=== PATIENT | female | born 2000 | race African-American/Black ===

== ENCOUNTER 2019-11-13 17:44 | Emergency (ER) | payer MEDICARE, MEDICAID ==
[~2019-11-13] VITALS: Ht 157.5 cm; Wt 51.3 kg
[2019-11-13 18:04] VITALS: BP 150/100
--- NOTE | 2019-11-13 18:25 | NUR ---
THIS NURSE CALLED THE "EMERGENCY CONSENT PHONE NUMBER" FOR THE [facility] PUBLIC ADMINISTRATION OFFICE. THEY STATED THAT THEY "WILL DISPATCH THE DEPUTY PROJECT FINANCIAL ANALYST FOR [facility]".
--- NOTE | 2019-11-13 18:30 | NUR ---
SPOKE TO KAILEE DIAL DEPUTY SENIOR QUANTITY SURVEYOR FOR [facility]. VERBAL CONSENT TO TREAT AND TRANSFER IF NEEDED VERIFIED BY [place] VIA TELEPHONE.
--- NOTE | 2019-11-13 18:35 | NUR ---
THIS NURSE TALKED WITH KAILEE DIAL, DEPUTY COMMUNICATIONS SCIENTIST FOR [facility], AND RECEIVED CONSENT TO BE TREATED AT THIS FACILITY IN THE ED, WELL CONSENT TO TRANSFER TO ANOTHER FACILITY IF NEEDED.
[2019-11-13 19:20] LABS: ABSOLUTE BASOPHILS 0.1 thou/uL (0.0-0.2); ABSOLUTE LYMPHOCYTES 1.7 thou/uL (0.8-5.3); ABSOLUTE MONOCYTES 0.3 thou/uL (0.0-1.2); ABSOLUTE NEUTROPHILS 2.8 thou/uL (1.6-8.1); BASOPHILS 1.4 %; EOSINOPHILS 0.7 %; HEMATOCRIT 36.4 % (37.0-47.0); HEMOGLOBIN 12.4 gm/dL (12.0-15.0); LYMPHOCYTES 34.2 %; MCH 28.9 pg (26.0-34.0); MCHC 34.1 g/dL (28.0-37.0); MCV 84.5 fL (80.0-100.0); MONOCYTES 6.3 %; MPV 7.8 fl. (7.2-11.1); NUCLEATED RBCS 0 /100WBC; PLATELET COUNT* 288 thou/uL (150-400); POLYS 57.4 %; RBC 4.31 mil/uL (4.20-5.00); RDW-CV 13.3 % (10.5-14.5); WBC 4.9 thou/uL (4.0-11.0)
[2019-11-13 19:27] LABS: CREATININE 0.6 mg/dL (0.6-1.3); POTASSIUM 3.1 mmol/L (3.5-5.1)
[2019-11-13 19:32] LABS: ALBUMIN 3.6 g/dL (3.4-5.0); TOTAL BILIRUBIN 0.5 mg/dL (<0.1-1.0); TOTAL PROTEIN 6.8 g/dL (6.4-8.2)
[2019-11-13 19:42] LABS: ACETAMINOPHEN < 2 ug/mL (10-30); ALCOHOL < 10 mg/dL (<10); SALICYLATE < 2.8 mg/dL (2.8-20.0)
[2019-11-13 22:45] LABS: URINE BILIRUBIN NEGATIVE (Negative); URINE BLOOD 2+ (Negative); URINE CLARITY CLEAR; URINE COLOR YELLOW; URINE GLUCOSE-RANDOM NEGATIVE (Negative); URINE KETONES 2+ (Negative); URINE LEUKOCYTES-REFLEX NEGATIVE (Negative); URINE NITRITE-REFLEX NEGATIVE (Negative); URINE PROTEIN NEGATIVE (Negative); URINE UROBILINOGEN 0.2 E.U./dl (0.2-1.0)
[2019-11-13 22:53] LABS: AMP/METHAMP Negative (Negative); BARBITURATES Negative (Negative); BENZODIAZEPINES Negative (Negative); COCAINE Negative (Negative); METHADONE Negative (Negative); OPIATES Negative (Negative); PCP Negative (Negative); THC Negative (Negative)
[2019-11-13 22:54] LABS: AMORPHOUS URATES Few /LPF (None Seen); BACTERIA-REFLEX >30 Many /HPF (None Seen); CASTS None Seen /LPF (None Seen); MUCUS 4-6 Moderate strn/LPF (None Seen); SQUAMOUS 4-10 Moderate /LPF (0-3); URINE RBC 3-10 Few /HPF (0-2); WBC CLUMPS Few (None Seen)
--- NOTE | 2019-11-14 01:38 | NUR ---
PT AWAKE AND SPEAKING IN FULL SENTENCES, REQUESTING TO GO HOME, WHEN INFORMED THAT SHE WAS ADMITTED, PT STARTED SHAKING HER HEAD "NO," AND STATED, "I DON'T WANT TO STAY, I WANT TO GO HOME, THE P[facility] GOT ME A ROOM, AND THAT'S WHERE ALL MY STUFF IS, IF I'M NOT THERE, THEY WILL THROW IT ALL AWAY." DR INFORMED OF PT'S STATUS, P/A PET COUNSELOR WAS CONTACTED, PLANNING DC TO [facility].
[2019-11-14] MEDS ORDERED: CIPROFLOXACIN500 M1 PO ×3 (03:01→03:34)
[2019-11-14 03:30] VITALS: BP 135/84
== END 2019-11-14 03:30 | disposition still patient (30) ==
LOC: M.ERS 17:44 → M.TBA-ER 11-14 02:31 → M.ERS 11-14 03:30
PROVIDERS: Emergency Medicine Emergency Medical Services
DX: N39.0 Urinary tract infection, site not specified (principal); R46.89 Other symptoms and signs involving appearance and behavior

== ENCOUNTER 2019-11-16 06:46 | Emergency (ER) | payer MEDICARE, MEDICAID ==
[~2019-11-16] VITALS: Ht 139.7 cm; Wt 54.4 kg
[~2019-11-16 06:46] MED LIST: CIPROFLOXACIN500 M1 PO
[2019-11-16] MEDS ORDERED: ESKALITH CR450 MG PO (09:14)
[2019-11-16 09:15] LABS: URINE BILIRUBIN NEGATIVE (Negative); URINE BLOOD TRACE (Negative); URINE CLARITY CLEAR; URINE COLOR YELLOW; URINE GLUCOSE-RANDOM NEGATIVE (Negative); URINE KETONES 1+ (Negative); URINE LEUKOCYTES-REFLEX NEGATIVE (Negative); URINE NITRITE-REFLEX NEGATIVE (Negative); URINE PROTEIN NEGATIVE (Negative); URINE UROBILINOGEN 0.2 E.U./dl (0.2-1.0)
[2019-11-16] MEDS ORDERED: ESKALITH300 MG PO (09:15)
[2019-11-16] MEDS ORDERED: COLACE100 MG PO (09:15)
[2019-11-16] MEDS ORDERED: ABILIFY10 MG PO (09:15)
[2019-11-16] MEDS ORDERED: MELATONIN3 M1 PO (09:15)
[2019-11-16 09:43] VITALS: BP 128/80
== END 2019-11-16 09:44 | disposition home or self-care (01) ==
LOC: M.ERS 06:46
PROVIDERS: Personal Emergency Response Attendant
DX: F19.10 Other psychoactive substance abuse, uncomplicated (principal)

== ENCOUNTER 2019-11-21 07:10 | Emergency (ER) | payer MEDICARE, MEDICAID ==
[~2019-11-21] VITALS: Ht 152.4 cm; Wt 52.2 kg
[~2019-11-21 07:10] MED LIST changes: +ABILIFY10 MG PO; +COLACE100 MG PO; +ESKALITH CR450 MG PO; +ESKALITH300 MG PO; +MELATONIN3 M1 PO
[2019-11-21 08:17] LABS: HEMATOCRIT 41.7 % (37.0-47.0); MCHC 33.7 g/dL (28.0-37.0); MCV 86.1 fL (80.0-100.0); MPV 8.2 fl. (7.2-11.1); RBC 4.84 mil/uL (4.20-5.00); WBC 5.2 thou/uL (4.0-11.0)
[2019-11-21 08:31] LABS: CALCIUM 9.9 mg/dL (8.5-10.1); CREATININE 0.7 mg/dL (0.6-1.3); POTASSIUM 3.7 mmol/L (3.5-5.1)
[2019-11-21 08:35] LABS: ALBUMIN 4.3 g/dL (3.4-5.0); TOTAL BILIRUBIN 0.6 mg/dL (<0.1-1.0); TOTAL PROTEIN 8.1 g/dL (6.4-8.2)
[2019-11-21 08:51] LABS: SALICYLATE < 2.8 mg/dL (2.8-20.0)
[2019-11-21 08:54] LABS: ACETAMINOPHEN < 2 ug/mL (10-30); ALCOHOL < 10 mg/dL (<10)
[2019-11-21 08:55] LABS: URINE BILIRUBIN NEGATIVE (Negative); URINE BLOOD NEGATIVE (Negative); URINE CLARITY CLEAR; URINE COLOR YELLOW; URINE GLUCOSE-RANDOM NEGATIVE (Negative); URINE KETONES 1+ (Negative); URINE LEUKOCYTES NEGATIVE (Negative); URINE NITRITE NEGATIVE (Negative); URINE PROTEIN NEGATIVE (Negative); URINE UROBILINOGEN 0.2 E.U./dl (0.2-1.0)
[2019-11-21 09:04] LABS: AMP/METHAMP Negative (Negative); BARBITURATES Negative (Negative); BENZODIAZEPINES Negative (Negative); COCAINE Negative (Negative); METHADONE Negative (Negative); OPIATES Negative (Negative); PCP Negative (Negative); THC Negative (Negative)
[2019-11-22 14:45] VITALS: BP 132/87
== END 2019-11-22 14:45 ==
LOC: M.ERS 07:10
PROVIDERS: Personal Emergency Response Attendant
DX: R45.851 Suicidal ideations (principal); F31.9 Bipolar disorder, unspecified; Z88.8 Allergy status to other drugs, medicaments and biological substances